=== PATIENT | female | born 1980 | race Caucasian/White ===

== ENCOUNTER 2022-09-16 16:53 | Emergency (ER) | payer OTHER, SELFPAY ==
--- NOTE | ~2022-09-16 | CT_ITS ---
EXAMINATION: CT brain wo con INDICATION: Headache COMPARISON: None TECHNIQUE: Standard unenhanced head CT. The dose-length product (DLP) was 605.33 mGy-cm. The mA was a djusted according to patient size. Iterative reconstruction technique was employed. FINDINGS: There is no intracranial hemorrhage, acute infarction, or abnormal mass lesion. The ventric les are normal. There is no abnormal mass effect or midline shift. The ga-white matter differentiat ion is normal. The basal cisterns are patent. The orbits are normal. There is mild mucosal thickening of the paranasal sinuses. IMPRESSION: 1. No acute intracranial abnormality. Reviewed, dictated and finalized at location F.
[2022-09-16 17:06] VITALS: BP 171/97; PULSE 90; RESP 15; TEMP 36.7; O2SAT 99
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
== END 2022-09-16 18:31 | disposition home or self-care (01) ==
PROVIDERS: Emergency Provider Physician Assistant
DX: T22.111A Burn of first degree of right forearm, initial encounter (principal); T24.131A Burn of first degree of right lower leg, initial encounter; T31.0 Burns involving less than 10% of body surface; V43.52XA Car driver injured in collision with other type car in traffic accident, initial encounter; W22.11XA Striking against or struck by driver side automobile airbag, initial encounter
CPT/HCPCS: 70450; 99284

== ENCOUNTER 2023-08-14 11:04 | Emergency (ER) | payer OTHER, SELFPAY ==
--- NOTE | ~2023-08-14 | CT_ITS ---
EXAMINATION: CT brain wo con DATE: 08/14/2023 11:41 INDICATION: Arm tingling. TECHNIQUE: Computed tomography (CT) of the head was performed without intravenous contrast. The mA wa s adjusted according to patient size. Iterative reconstruction technique was employed. The dose-lengt h product was 605.33 mGy-cm. COMPARISON: Head CT 09/16/2022 FINDINGS: There is no intracranial hemorrhage, acute infarction, or abnormal intracranial mass lesion . The ventricles are normal in size. The paranasal sinuses are clear. The mastoid air cells are amanda l. IMPRESSION: 1. Normal brain. Reviewed, dictated and finalized at location A. IMPRESSION: 1. Normal brain.
[2023-08-14 11:07] VITALS: BP 173/123; PULSE 80; RESP 17; TEMP 36.7; O2SAT 99
--- NOTE | 2023-08-14 11:09 | ECG_ITS ---
SEE SCANNED COPY FOR CONFIRMED REPORT MTDD
--- NOTE | 2023-08-14 11:24 | ED.GENADULT ---
HPI - General Adult General Chief complaint: Recheck/Abnormal Lab/Rx Stated complaint: htn/arm tingling Time Seen by Provider: 08/14/23 11:06 History of Present Illness HPI narrative: 43-year-old female presenting to the emergency department for evaluation for acute onset headache and hypertension. Patient states she has been having recurrent nosebleeds this week and has decreased use of her nasal spray. Patient did check her blood pressure yesterday was noted to have a blood pressure of 150 systolic. When patient woke up this morning she states her blood pressure was 116 systolic. Patient does admit to drinking at least 10 cups of coffee this morning. Patient was working out in the [employer] when she had onset headache and checked her blood pressure and was found to be elevated. Upon arrival emergency department patient is tearful and anxious appearing. Patient denies any prior history of coronary disease. Patient denies any associated chest pain or shortness of breath. Patient is not taking medications for hypertension. Related Data Allergies Allergy/AdvReac Type Severity Reaction Status Date / Time No Known Allergies Allergy Verified 08/14/23 11:11 Review of Systems Review of Systems: All systems reviewed & are unremarkable except as noted in HPI and below Exam Narrative: APPEARANCE: Well appearing, no pain, no distress, well-nourished. HEAD: normocephalic, atraumatic. EYES: PERRLA/EOMI, conjunctivae clear. NOSE: Normal no drainage NECK: Supple. No adenopathy, no masses. RESPIRATORY: Airway patent, respirations nonlabored. Clear to auscultation bilaterally, no rales, rhonchi, wheezing. CARDIOVASCULAR: Regular rate and rhythm without murmurs rubs or gallops. ABDOMINAL: Soft, nontender, nondistended, normal bowel sounds MUSCULOSKELETAL: Moves all extremities. Strength/ROM intact, No edema, No calf tenderness. NEURO: Alert. Cranial nerves II through XII intact. Grossly intact SKIN: Warm, dry. Normal Color PSYCHIATRIC: Tearful anxious appearing Course Vital Signs Vital signs: Vital Signs Temperature 98.1 F 08/14/23 11:07 Pulse Rate 80 08/14/23 11:07 Respiratory Rate 17 08/14/23 11:07 Blood Pressure 173/123 H 08/14/23 11:07 Pulse Oximetry 99 08/14/23 11:07 Oxygen Delivery Room Air 08/14/23 11:07 Temperature 98.3 F 08/14/23 13:25 Pulse Rate 62 08/14/23 13:25 Respiratory Rate 16 08/14/23 13:25 Blood Pressure 125/82 08/14/23 13:25 Pulse Oximetry 99 08/14/23 13:25 Oxygen Delivery Room Air 08/14/23 11:07 Medical Decision Making MDM Narrative Medical decision making narrative: 43-year-old female presenting to the emergency department for evaluation hypertension. Patient's EKG show normal sinus rhythm. Patient's blood pressure was elevated 173/123 upon arrival to the emergency department with no intervention patient's blood pressure did improve to 129/88. Patient is afebrile with no leukocytosis and a stable hemoglobin of 15.3 P. Patient has a normal INR. No acute abnormalities on the patient's CMP UA shows no proteinuria no evidence of infection. Head CT was negative for acute intracranial abnormality. Patient was strongly encouraged to decrease her caffeine intake. Patient states she drinks up to 14 cups coffee and multiple energy drinks a day with potential caffeine intake close to 2 g. Differential Diagnosis Differential Diagnosis: Hypertension, heart palpitations, epistaxis Vital Signs Vital Signs: Vital Signs Temperature 98.1 F 08/14/23 11:07 Pulse Rate 80 08/14/23 11:07 Respiratory Rate 17 08/14/23 11:07 Blood Pressure 173/123 H 08/14/23 11:07 Pulse Oximetry 99 08/14/23 11:07 Oxygen Delivery Room Air 08/14/23 11:07 Temperature 98.3 F 08/14/23 13:25 Pulse Rate 62 08/14/23 13:25 Respiratory Rate 16 08/14/23 13:25 Blood Pressure 125/82 08/14/23 13:25 Pulse Oximetry 99 08/14/23 13:25 Oxygen Delivery Room Air 08/14/23 11:07
[2023-08-14 11:37] LABS: Basophils Absolute Auto 0.1 K/mm3 (0.0-0.1); Eosinophils Absolute Auto 0.1 K/mm3 (0-0.3); Eosinophils Percent Auto 1.1 % (0-4.4); Hematocrit 46.2 % (37.0-47.0); Hemoglobin 15.3 g/dL (12.0-15.0); Immature Granulocyte Absolute 0.01 K/mm3 (0.00-0.031); Immature Granulocyte Percent A 0.2 % (0-0.5); Lymphocytes Percent Auto 40.7 % (18.3-44.2); Mean Corpuscular HGB Conc 33.1 g/dl (32-36); Mean Corpuscular Hemoglobin 31.9 pg (26-34); Mean Corpuscular Volume 96.5 fl (80-100); Mean Platelet Volume 10.2 fl (7.4-10.4); Monocytes Absolute Auto 0.6 K/mm3 (0.1-0.6); Monocytes Percent Auto 13.8 % (2.6-8.5); Neutrophils Absolute Auto 1.9 K/mm3 (1.3-6.7); Neutrophils Percent Auto 42.2 % (45.5-73.1); Platelet Count Result 287 k/mm3 (150-375); Red Blood Count 4.79 M/mm3 (4.2-5.4); Red Cell Distribution Width 11.9 % (11.5-14.5); White Blood Count 4.4 K/mm3 (4.5-10.0)
[2023-08-14 11:43] LABS: INR 0.9; Prothrombin Time 12.1 Seconds (11.1-14.7)
[2023-08-14 11:44] LABS: Partial Thromboplastin Time 28.3 Seconds (22.3-36.8)
[2023-08-14 11:47] LABS: Alanine Aminotransferase 25 U/L (6-35); Albumin Level 4.8 g/dL (3.5-5.1); Alkaline Phosphatase 89 U/L (38-126); Anion Gap 6 mmol/L (4-12); Aspartate Amino Transferase 35 U/L (14-36); Bilirubin,Total 0.7 mg/dL (0.2-1.3); Blood Urea Nitrogen 15 mg/dL (7-17); Calcium 9.7 mg/dL (8.4-10.2); Carbon Dioxide 23 mmol/L (22-30); Chloride 108 mmol/L (98-107); Estimated CRCL calculation 127 ml/min; Estimated Glomerular Filt Rate > 60; Glucose 91 mg/dL (65-110); Sodium 137 mmol/L (137-145)
[2023-08-14] MEDS: SODIUM CHLORIDE 0.9% IV 1,000 ML 999 ML IV CONT (11:52)
[2023-08-14 12:03] VITALS: BP 144/92; PULSE 62; RESP 17; O2SAT 98
[2023-08-14 12:23] LABS: Appearance Urine Clear (Clear); Bilirubin Urine Negative (Negative); Blood Urine Negative (Negative); Color Urine Yellow (Yellow); Glucose Urine UA Negative (Negative); Ketones Urine Negative (Negative); Leukocyte Esterase Ur Negative LEU/UL (Negative); Nitrate Urine Negative (Negative); Protein Urine Negative (Negative); Specific Grav Ur 1.004 (1.001-1.035); Urobilinogen Urine 0.2 mg/dL (<2.0)
[2023-08-14 12:24] LABS: Add Urine Microscopic? YES
[2023-08-14 13:25] VITALS: BP 125/82; PULSE 62; RESP 16; TEMP 36.8; O2SAT 99
== END 2023-08-14 13:28 | disposition home or self-care (01) ==
PROVIDERS: Emergency Provider Emergency Medicine
DX: I10 Essential (primary) hypertension (principal); R04.0 Epistaxis; R94.31 Abnormal electrocardiogram [ECG] [EKG]
CPT/HCPCS: 36415; 70450; 80053; 81001; 81025; 85025; 85610; 85730; 93005; 96360; 99284; J7030